=== PATIENT | female | born 1945 | race American Indian/Alaskan Native ===

== ENCOUNTER 2017-01-10 10:36 | Outpatient (CLI) | payer MEDICARE, OTHER | END 2017-01-10 10:37 | disposition home or self-care (01) | LOC: ECHO 10:36 | PROVIDERS: ATTEND Internal Medicine Hematology & Oncology | DX: I34.0 Nonrheumatic mitral (valve) insufficiency (principal); I05.8 Other rheumatic mitral valve diseases | CPT/HCPCS: 93306 ==

== ENCOUNTER 2022-03-19 14:03 | Outpatient (CLI) | payer MEDICARE, OTHER ==
[2022-03-19 16:04] LABS: Alanine Aminotransferase 24 units/L (7-56); Albumin 4.1 g/dL (3.9-5); BUN/Creatinine Ratio 18; Blood Urea Nitrogen 18 mg/dL (7-17); Hemolysis Index 4
--- NOTE | 2022-03-20 08:34 | Cat Scan Report ---
CT ABDOMEN AND PELVIS WITH CONTRAST HISTORY: R11.0 nausea, abnormal bowel sounds COMPARISON: None. TECHNIQUE: Axial CT images were obtained through the abdomen and pelvis after 100 cc of Omnipaque 300 IV contrast. Sagittal and coronal reformatted images. All CT scans at this location are performed us ing CT dose reduction for ALARA by means of automated exposure control. FINDINGS: CT ABDOMEN: Lung Bases: Clear lung bases. Heart size is borderline. Liver: No significant abnormality. Biliary: No significant abnormality. Spleen: No significant abnormality. Unenlarged. Pancreas: No significant abnormality. Adrenals: No significant abnormality. Kidneys: No significant abnormality. Lymphatics: No lymphadenopathy. Vasculature: No significant abnormality. Bowel/Peritoneum: No significant abnormality. No free air. No free fluid. Normal appendix. CT PELVIS: : Hysterectomy. The vaginal cuff, adnexa and bladder are unremarkable. Osseous Structures: Nothing acute. No suspicious bony lesion. Mild to moderate lumbar spondylosis. Additional Findings: Tiny umbilical hernia containing fat. IMPRESSION: No significant abnormality. Signer Name: Rick Edwards Jr, MD Signed: 03/20/2022 8:29 AM Workstation Name: [id number]
== END 2022-03-19 14:04 | disposition home or self-care (01) ==
LOC: CT 14:03
PROVIDERS: ATTEND Internal Medicine Hematology & Oncology
DX: K42.9 Umbilical hernia without obstruction or gangrene (principal); R11.0 Nausea; R11.10 Vomiting, unspecified; R19.15 Other abnormal bowel sounds; M47.816 Spondylosis without myelopathy or radiculopathy, lumbar region; Z90.710 Acquired absence of both cervix and uterus
CPT/HCPCS: 36415; 74177; 80053; Q9967